=== PATIENT | female | born 1960 | race Caucasian/White ===

== ENCOUNTER 2016-04-18 11:02 | Inpatient (IN) | payer SELFPAY ==
--- NOTE | 2016-04-18 11:33 | ED Physician Chart ---
Chief Complaint/HPI - Patient Information Allergies:: Allergies Allergy/AdvReac Type Severity Reaction Status Date / Time acetaminophen [From Vicodin] Allergy Verified 04/18/16 11:20 hydrocodone [From Vicodin] Allergy Verified 04/18/16 11:20 propoxyphene Allergy Verified 04/18/16 11:20 [From Darvocet-N 100] Vitals:: Vital Signs - 8 hr 04/18/16 04/18/16 16:30 18:25 HR 70 67 RR 18 18 BP 126/60 117/66 O2 Sat % 98 98 <Enmanuel Anguiano - Last Filed: 04/18/16 22:22> - Patient Information Date Seen:: 04/18/16 Time Seen:: 11:33 Chief Complaint:: GENERALIZED WEAKNESS since April 05 History of Present Illness:: The patient awoke April 05 with a sensation of generalized body heaviness and weakness. The week before this she experienced a 3 day headache. In the first week of April she also had a generalized headache. She was seen at [facility] and diagnosed with dehydration and UTI 4 days ago. Since then she has been on cephalexin 4 times a day but has noticed no improvement in her fatigue or weakness. Patient has a strong family history of coronary artery disease with her brother dying at age 22, a mother with 2 myocardial infarctions , and a younger sister who had a mild heart a couple of years ago.. The patient has experienced no chest discomfort or respiratory distress. She has no peripheral edema and no prior history of DVT or pulmonary embolism. Allergies:: Allergies Allergy/AdvReac Type Severity Reaction Status Date / Time acetaminophen [From Vicodin] Allergy Verified 04/18/16 11:20 hydrocodone [From Vicodin] Allergy Verified 04/18/16 11:20 propoxyphene Allergy Verified 04/18/16 11:20 [From Darvocet-N 100] <Chad Patino - Last Filed: 04/19/16 13:28> Review of Systems - Review of Systems General/Constitutional: No fever, No chills, Weakness (And severe fatigue.), No diaphoresis, No edema, No loss of appetite Skin: No skin lesions, No rash, No bruising Head: Headache, Light headed Eyes: No loss of vision, No pain, No diplopia ENT: No earache, No nasal drainage, No sore throat Neck: No neck pain, No stiffness Cardio Vascular: No chest pain, No palpitations, No PND, No edema Pulmonary: No SOB, No cough, No sputum, No wheezing GI: Nausea, No vomiting, No diarrhea, No pain, No hematemesis G/U: No dysuria, No hematuria, Other ( Is on antibiotics for treatment of the UTI four days ago.) Hydrotherapist: No abnormal vaginal bleed Musculoskeletal: No bone or joint pain, No back pain, No muscle pain Endocrine: No polyuria, No polydipsia Psychiatric: No prior psych history, No suicidal ideation Hematopoietic: No bruising, No lymphadenopathy Allergic/Immuno: No urticaria, No angioedema Neurological: No syncope, Weakness ( Generalized weakness and fatigue.), No seizure, No confusion, No vertigo <Chad Patino - Last Filed: 04/19/16 13:28> Past Medical History - Past Medical History Past Medical History: Other (angina) Family History: None Social History: Non Smoker, No Alcohol, No Drug Use Surgical History: None Psychiatricy History: None <Enmanuel Anguiano - Last Filed: 04/18/16 22:22> Family Medical History - Family Member Mother Hx Family Coronary Artery Disease: Yes <Chad Patino - Last Filed: 04/19/16 13:28> Physical Exam - Physical Examination General/Constitutional: Well-developed, well-nourished, Alert, No distress, GCS 15, Non-toxic appearing, Ambulatory Head: Atraumatic Eyes: Lids, conjuctiva normal, PERRL, EOMI Other Eyes comments:: No nystagmus. Skin: Nl inspection, No rash, No skin lesions, No ecchymosis, Well hydrated, No lymphadenopathy Other Skin comments:: The patient has increased pigmentation in her palmar creases. ENMT: External ears, nose nl, Nasal exam nl, Lips, teeth, gums nl, Oropharynx nl , Tonsils nl Neck: Nontender, Full ROM w/o pain, No JVD, No nuchal rigidity, No mass Other Neck comments:: No thyromegaly or thyroid nodules. Respiratory: Nl effort/Exclusion, Clear to Auscultation, No Wheeze/Rhonchi/Rales Cardio Vascular: RRR, No murmur, gallop, rubs, NL S1 S2 GI: No tenderness/rebounding/guarding, No organomegaly, No hernia, Normal BS's, Nondistended, No mass/bruits, No McBurney tenderness : No CVA tenderness Extremities: No tenderness or effusion, Full ROM, normal strength in all extremities, No edema Other Extremities comments:: No calf tenderness and Solorio's sign was negative Neuro/Psych: Alert/oriented, DTR's symmetric, Normal sensory exam, Normal motor strength, Judgement/insight normal, Mood normal, No focal deficits Misc: Normal back, No paraspinal tenderness <Chad Patino - Last Filed: 04/19/16 13:28> Labs/Radiology/EKG Results - Lab Results Results: Laboratory Tests 04/18/16 04/18/16 04/18/16 12:35 12:35 12:35 WBC 4.6 L RBC 5.25 H Hgb 15.6 H Hct 46.7 H MCV 88.9 MCH 29.7 MCHC Differential 33.5 RDW 12.4 Plt Count 286 MPV 7.5 Neutrophils % 68.6 Lymphocytes % 22.0 Monocytes % 8.0 Eosinophils % 0.9 Basophils % 0.5 Sodium 138 Potassium 3.9 Chloride 107 Carbon Dioxide 25.9 Anion Gap 9.0 BUN 9 Creatinine 0.8 Est GFR ( Amer) > 60.0 Est GFR (Non-Af Amer) > 60.0 BUN/Creatinine Ratio 11.3 Glucose 103 Calcium 10.6 H Total Bilirubin 0.5 AST 10 L ALT 24 Alkaline Phosphatase 99 Troponin I < 0.01 L B-Natriuretic Peptide 28.6 Total Protein 8.4 H Albumin 4.6 Globulin 3.8 Albumin/Globulin Ratio 1.2 Urine Source Urine Color Urine Clarity Urine pH Ur Specific [place] Urine Protein Urine Glucose (UA) Urine Ketones Urine Blood Urine Nitrate Urine Bilirubin Urine Urobilinogen Ur Leukocyte Esterase Urine RBC Urine WBC Ur Epithelial Cells Urine Bacteria 04/18/16 12:40 WBC RBC Hgb Hct MCV MCH MCHC Differential RDW Plt Count MPV Neutrophils % Lymphocytes % Monocytes % Eosinophils % Basophils % Sodium Potassium Chloride Carbon Dioxide Anion Gap BUN Creatinine Est GFR ( Amer) Est GFR (Non-Af Amer) BUN/Creatinine Ratio Glucose Calcium Total Bilirubin AST ALT Alkaline Phosphatase Troponin I B-Natriuretic Peptide Total Protein Albumin Globulin Albumin/Globulin Ratio Urine Source RANDOM Urine Color YELLOW Urine Clarity SL. CLOUDY Urine pH 7.5 Ur Specific [place] 1.015 Urine Protein NEGATIVE Urine Glucose (UA) NEGATIVE Urine Ketones 15 H Urine Blood TRACE Urine Nitrate NEGATIVE Urine Bilirubin NEGATIVE Urine Urobilinogen 0.2 Ur Leukocyte Esterase NEGATIVE Urine RBC 0-1 Urine WBC NONE SEEN Ur Epithelial Cells RARE Urine Bacteria NONE SEEN - Radiology Results Results: Single AP VIEW Portable Chest X-ray was interpreted independently and contemporaneously by Gris Anguiano MD: No cardiomegaly Normal mediastinum No lung infiltrates No pneumothorax No soft tissue or bony abnormalities CT head without contrast per radiology NAD <Enmanuel Anguiano - Last Filed: 04/18/16 22:22> - Lab Results Results: Laboratory Tests 04/18/16 04/18/16 04/18/16 12:35 12:35 12:35 WBC 4.6 L RBC 5.25 H Hgb 15.6 H Hct 46.7 H MCV 88.9 MCH 29.7 MCHC Differential 33.5 RDW 12.4 Plt Count 286 MPV 7.5 Neutrophils % 68.6 Lymphocytes % 22.0 Monocytes % 8.0 Eosinophils % 0.9 Basophils % 0.5 Sodium 138 Potassium 3.9 Chloride 107 Carbon Dioxide 25.9 Anion Gap 9.0 BUN 9 Creatinine 0.8 Est GFR ( Amer) > 60.0 Est GFR (Non-Af Amer) > 60.0 BUN/Creatinine Ratio 11.3 Glucose 103 Calcium 10.6 H Total Bilirubin 0.5 AST 10 L ALT 24 Alkaline Phosphatase 99 Troponin I < 0.01 L B-Natriuretic Peptide 28.6 Total Protein 8.4 H Albumin 4.6 Globulin 3.8 Albumin/Globulin Ratio 1.2 Urine Source Urine Color Urine Clarity Urine pH Ur Specific [place] Urine Protein Urine Glucose (UA) Urine Ketones Urine Blood Urine Nitrate Urine Bilirubin Urine Urobilinogen Ur Leukocyte Esterase Urine RBC Urine WBC Ur Epithelial Cells Urine Bacteria 04/18/16 12:40 WBC RBC Hgb Hct MCV MCH MCHC Differential RDW Plt Count MPV Neutrophils % Lymphocytes % Monocytes % Eosinophils % Basophils % Sodium Potassium Chloride Carbon Dioxide Anion Gap BUN Creatinine Est GFR ( Amer) Est GFR (Non-Af Amer) BUN/Creatinine Ratio Glucose Calcium Total Bilirubin AST ALT Alkaline Phosphatase Troponin I B-Natriuretic Peptide Total Protein Albumin Globulin Albumin/Globulin Ratio Urine Source RANDOM Urine Color YELLOW Urine Clarity SL. CLOUDY Urine pH 7.5 Ur Specific [place] 1.015 Urine Protein NEGATIVE Urine Glucose (UA) NEGATIVE Urine Ketones 15 H Urine Blood TRACE Urine Nitrate NEGATIVE Urine Bilirubin NEGATIVE Urine Urobilinogen 0.2 Ur Leukocyte Esterase NEGATIVE Urine RBC 0-1 Urine WBC NONE SEEN Ur Epithelial Cells RARE Urine Bacteria NONE SEEN Laboratory interpretation: CBC is normal. Basic metabolic panel is unremarkable. The patient has a troponin within the normal range. BNP is within normal range. Single view chest x-ray: No cardiomegaly. No CHF. No aortic calcifications or dilatation. No pneumothorax. No areas of pulmonary consolidation or infiltrate. Impression: No acute cardiopulmonary findings. - EKG Interpretations EKG Time:: 11:22 Rhythm: NORMAL SINUS RHYTHM [place]: NORMAL Rate: 65 <Chad Patino - Last Filed: 04/19/16 13:28> Assessment - Assessment General Assessment: CASE SUMMARY: this 55-year-old female presents with severe generalized weakness and fatigue that has been going on for two weeks. Patient was seen at [facility] for these complaints and diagnosed with UTI and dehydration. She was placed on a course of cephalexin with no improvement. The patient has an incidental family history of severe coronary artery disease. Patients mother's had 2 IA's and her younger sister has had one myocardial infarction. Her brother at age 22 from a presumed heart problem. The patient's EKG, troponin and BMP were all unremarkable. Chest x-ray showed no evidence of cardiomegaly or CHF. Because of the strong family history of coronary artery disease I felt this patient should be admitted for further diagnostic studies and cardiology consultation to rule out ACS as this could represent an anginal equivalent to chest pain. MDM DDX FOR SEVERE GENERALIZED WEAKNESS: NOT Anemia Due to a hemoglobin level of 15.6. NOT Electrolyte imbalance due to normal values in the metabolic panel. NOT Sepsis due to the patient's vital signs and laboratory results. NOT Faulk's disease due to normal electrolyte values. <Chad Patino - Last Filed: 04/19/16 13:28> ED Septic Shock - . Is Septic Shock (SBP<90, OR Lactate>4 mmol\L) present?: No - <6hrs of presentation: Vital Signs: Vital Signs - 8 hr 04/18/16 04/18/16 16:30 18:25 HR 70 67 RR 18 18 BP 126/60 117/66 O2 Sat % 98 98 <Enmanuel Anguiano - Last Filed: 04/18/16 22:22> - . Is Septic Shock (SBP<90, OR Lactate>4 mmol\L) present?: No <Chad Patino - Last Filed: 04/19/16 13:28> Reassessment (Disposition) - Reassessment Reassessment:: Discussed the case with Dr. Allen. Patient will be brought in for observation to rule out ACS. Reassessment Condition:: Unchanged - Diagnosis Diagnosis:: Generalized weakness Rule out ACS Hypertension - Patient Disposition Discharge/Transfer:: Acute Care w/in this hosp Admitting Medical Physician:: Pascual Allen Time:: 22:00 Condition at Disposition:: Stable <Enmanuel Anguiano - Last Filed: 04/18/16 22:22> ED Discharge Plan <Enmanuel Anguiano - Last Filed: 04/18/16 22:22> <Chad Patino - Last Filed: 04/19/16 13:28> - Patient Disposition Admit/Discharge/Transfer: Acute Care w/in this hosp
[2016-04-18] MEDS ORDERED: Sodium Chloride 0.9% 1,000 ML IV ONE ×2 (12:07→12:09)
[2016-04-18 12:46] LABS: % BASOPHILS 0.5 % (0.0-2.0); % EOSINOPHILS 0.9 % (0.0-5.0); % NEUTROPHILS 68.6 % (40.0-80.0); HEMATOCRIT 46.7 % (35.0-45.0); HEMOGLOBIN 15.6 gm/dL (11.7-15.5); MEAN CELL VOLUME 88.9 fl (81-100); MEAN CORPUSCULAR HEMOGLOBIN 29.7 pg (27.0-31.0); MEAN CORPUSCULAR HGB CONC 33.5 pg (28.0-36.0); MEAN PLATELET VOLUME 7.5 fl; NEUTROPHILE ABSOLUTE 3.2 Th/cmm (1.8-8.0); PLATELET COUNT 286 Th/cmm (150-400); RED BLOOD COUNT 5.25 Mil/cmm (3.80-5.10); RED CELL DISTRIBUTION WIDTH 12.4 % (11.5-20.0); WHITE BLOOD COUNT 4.6 Th/cmm (4.8-10.8)
[2016-04-18 12:48] LABS: URINE BILIRUBIN NEGATIVE (NEGATIVE); URINE BLOOD TRACE (NEGATIVE); URINE COLOR YELLOW; URINE GLUCOSE (UA) NEGATIVE (NEGATIVE); URINE KETONE 15 mg/dL (NEGATIVE)
[2016-04-18 12:49] LABS: URINE PH 7.5; URINE PROTEIN NEGATIVE (NEGATIVE); URINE UROBILINOGEN 0.2 E.U./dL (0.2 - 1.0)
[2016-04-18 12:55] LABS: URINE BACTERIA NONE SEEN /hpf (NONE SEEN); URINE EPITHELIAL CELLS RARE /lpf (FEW); URINE RBC 0-1 /hpf (0-5); URINE WBC NONE SEEN /hpf (0-5)
[2016-04-18 13:05] LABS: ALB/GLOB RATIO 1.2 (1.0-1.8); ALKALINE PHOSPHATASE 99 U/L (34-104); BILIRUBIN,TOTAL 0.5 mg/dL (0.3-1.0); BUN - UREA NITROGEN 9 mg/dL (7-25); BUN/CREATININE RATIO 11.3; CALCIUM SERUM 10.6 mg/dL (8.6-10.3); CARBON DIOXIDE 25.9 mEq/L (21.0-31.0); CHLORIDE 107 mEq/L (98-107); CREATININE - SERUM 0.8 mg/dL (0.6-1.2); GLUCOSE 103 mg/dL (70-105); POTASSIUM SERUM 3.9 mEq/L (3.5-5.1); SGOT 10 U/L (13-39); SGPT/ALT 24 U/L (7-52); SODIUM SERUM 138 mEq/L (136-145)
[2016-04-18 13:31] LABS: BNP 28.6 pg/mL (5.0-100.0)
[2016-04-19] MEDS: Sodium Chloride 0.9% 1,000 ML IV SCH ×2 (00:34→13:28)
[2016-04-19 06:43] LABS: % BASOPHILS 0.3 % (0.0-2.0); % EOSINOPHILS 2.1 % (0.0-5.0); % LYMPHOCYTES 23.8 % (20.0-50.0); % MONOCYTES 9.2 % (2.0-10.0); % NEUTROPHILS 64.6 % (40.0-80.0); MEAN CELL VOLUME 87.1 fl (81-100); MEAN CORPUSCULAR HEMOGLOBIN 29.9 pg (27.0-31.0); MEAN CORPUSCULAR HGB CONC 34.4 pg (28.0-36.0); MEAN PLATELET VOLUME 7.9 fl; NEUTROPHILE ABSOLUTE 3.4 Th/cmm (1.8-8.0); RED BLOOD COUNT 4.51 Mil/cmm (3.80-5.10); RED CELL DISTRIBUTION WIDTH 12.3 % (11.5-20.0); WHITE BLOOD COUNT 5.3 Th/cmm (4.8-10.8)
[2016-04-19 06:45] LABS: CHOLESTEROL 130 mg/dL (<200); TRIGLYCERIDES 78 mg/dL (<150)
[2016-04-19 06:47] LABS: ALB/GLOB RATIO 1.3 (1.0-1.8); ALKALINE PHOSPHATASE 78 U/L (34-104); ANION GAP 9.3 (7.0-16.0); BILIRUBIN,TOTAL 0.6 mg/dL (0.3-1.0); BUN - UREA NITROGEN 9 mg/dL (7-25); BUN/CREATININE RATIO 12.9; CALCIUM SERUM 9.7 mg/dL (8.6-10.3); CARBON DIOXIDE 23.6 mEq/L (21.0-31.0); CHLORIDE 108 mEq/L (98-107); CREATININE - SERUM 0.7 mg/dL (0.6-1.2); GLUCOSE 94 mg/dL (70-105); POTASSIUM SERUM 3.9 mEq/L (3.5-5.1); SGOT 16 U/L (13-39); SGPT/ALT 24 U/L (7-52); SODIUM SERUM 137 mEq/L (136-145)
[2016-04-19 08:03] LABS: HEMATOCRIT 39.3 % (35.0-45.0); HEMOGLOBIN 13.5 gm/dL (11.7-15.5)
[2016-04-19 08:04] LABS: PLATELET COUNT 228 Th/cmm (150-400)
[2016-04-19] MEDS: Aspirin 81mg Chewable Tab PO SCH (09:03)
--- NOTE | 2016-04-19 11:20 | Diagnostic Imaging Report ---
Portable chest x-ray HISTORY: Shortness of breath The overall heart size is difficult to assess with portable technique in a poor inspiration. No acute focal pulmonary processes. No hilar or mediastinal abnormalities. IMPRESSION: No acute abnormalities
--- NOTE | 2016-04-19 11:22 | Diagnostic Imaging Report ---
Portable chest x-ray History: Shortness of breath Allowing for portable technique the heart size is normal. No focal pulmonary parenchymal processes. No hilar or mediastinal abnormalities. Impression: No acute abnormalities.
--- NOTE | 2016-04-19 11:24 | Diagnostic Imaging Report ---
CT scan of the brain without intravenous contrast HISTORY: Stroke, CVA Total DLP equals 568 CTDI equals 32.9 Axial sections were obtained from the base of the skull to the vertex. There is a normal ventricular system size. There is prominence of cerebral sulci and subarachnoid cisterns reflecting mild atrophy. No acute parenchymal abnormalities. No intracerebral hemorrhage. No mass effect or shift of midline structures. No extra-axial masses or abnormal fluid collections. IMPRESSION: 1. No acute abnormalities
--- NOTE | 2016-04-19 19:41 | History & Physical ---
CHIEF COMPLAINT: Generalized weakness, chest tightness. HISTORY OF PRESENT ILLNESS: This is a 55-year-old female who has a history of obstructive sleep apnea and who was in her usual state of health until 04/05/2016 when apparently she woke up with generalized feeling of weakness, tiredness with a "heavy body feeling", especially on both of her feet and legs and on and off headaches. She apparently had a 3-day history of headaches which started soon after her weakness. She also reports feeling of chest pressure, although she states that she has had angina and this has been somewhat different in the sense that it does not radiate to any of her upper extremities and is not associated with nausea, vomiting or diaphoresis. She went to [facility] couple of days ago and was apparently diagnosed with UTI and was given Keflex p.o., which has not helped with her symptoms. She denies any UTI symptomatology. She also denies any fever or chills. She does have a strong history of family cardiac history. She had a brother who at age 22 secondary to a sudden MS and her mom was diagnosed with CAD about 2 years ago, she has had stent placement. The patient has been admitted to telemetry for further management and care. PAST MEDICAL HISTORY: She was told she had angina a few years ago, but has had no recurrent symptoms-has never had cardiac w/u. She does have a history of sleep apnea, which diagnosed 4 years ago, but she has not been able to afford a BiPAP or nasal CPAP. PAST SURGICAL HISTORY: Large lipoma resection from her left upper back many years ago. FAMILY HISTORY: As noted in the HPI. There is also history of fibromyalgia in her mom and her sister. SOCIAL HISTORY: No tobacco, no ETOH, no illicit drug usage. She works as an contract post office clerk. ALLERGIES: Vicodin and Percocet-side effects are lethargy and LOC. OUTPATIENT MEDICATIONS: Currently on Keflex and at times very rarely she take baby aspirin. REVIEW OF SYSTEMS: GENERAL: As mentioned in the HPI, generalized lethargy with a feeling of heaviness throughout her body, occasional headaches. Denies any fever or chills. She states that she has gained probably about 10 pounds over the last month or so given the holidays, but denies any other major symptomatology at this time. HEAD AND NECK: No decrease in vision. Headaches which are in both hemispheres. CARDIAC: Chest pressure especially at night when she thinks she is having an apnea episode. CHEST: She denies any pain with deep breathing. PULMONARY: No cough or phlegm production. GASTROINTESTINAL: No bowel habit changes. GENITOURINARY: Denies any dysuria or hematuria. NEUROLOGIC: Denies any changes in vision. The headaches as mentioned above. No syncope. At times when waking up she feels as she might be having vertigo as she feels the room spins at times. PHYSICAL EXAMINATION: VITAL SIGNS: Temperature 97.8, pulse 70-76, respirations 16, BP 137/87, satting 95-98% on room air. GENERAL: She is a well-developed, mildly obese female, awake, alert and oriented x 3, not in acute distress, able to answer questions appropriately. HEENT: Normocephalic, atraumatic. Extraocular movements are intact. Oropharynx moist and clear. CARDIOVASCULAR: Regular rate and rhythm without any murmurs. S1, S2 could be heard. No rubs are noted. RESPIRATORY: Lungs are clear to auscultation bilaterally. ABDOMEN: Soft, supple, nontender, nondistended, normoactive bowel sounds. EXTREMITIES: No edema in lower extremities. NEUROLOGIC: Grossly intact and nonfocal. She is able to move all four extremities with equal force and strength. LABORATORY DATA: White count 5.3, H and H 13/39 and platelet count 228. Chemistries were essentially within normal limits. Troponins have been negative x 3 sets. BNP is 28.6. TSH 4.48. HDL 41, LDL 76. Cholesterol was 130, triglycerides 78. UA positive for ketones, otherwise, within normal limits. DIAGNOSTICS: There was a portable chest x-ray done showing no acute abnormalities. A CT scan of the brain without IV contrast showed no acute abnormalities. EKG, sinus rhythm with a rate of 61, no ST elevations or depressions, no Q-waves or inverted T-waves noted. IMPRESSION AND PLAN: 1. Generalized tiredness and weakness with her history the most likely culprit might be worsening sleep apnea. 2. Chest tightness. Risk factors include age and family history. PLAN: She has been admitted to telemetry for further management and care. She has been ruled out with enzymes and EKGs, will ask for a 2D echo and I will also ask for a carotid ultrasound given her current symptoms. I will also check for lupus potential with BRANDEE and double stranded DNA. We will also get ESR and CRP levels. The patient will also be seen by Cardiology and will be checking for daily labs and a followup EKG. Given her family's strong cardiac, pt may benefit from cardiac cath as outpatient once discharged. JOB# [id number] [place]
[2016-04-20] MEDS: Sodium Chloride 0.9% 1,000 ML IV SCH (03:08)
[2016-04-20] MEDS: Aspirin 81mg Chewable Tab PO SCH (09:07)
--- NOTE | 2016-04-20 19:35 | Cardiology ---
The patient of Dr. Allen. M-MODE ECHOCARDIOGRAM: Mitral valve, anterior leaflet of the mitral valve shows normal excursion, EF velocity. Posterior leaflet of mitral valve shows normal excursion. There is hypertrophy of the left ventricle, ejection fraction 62%, left atrium normal. Aortic root shows normal dimension, normal excursion of aortic leaflets. CONCLUSION: Hypertrophy of the left ventricle, ejection fraction 62%. 2D ECHO: Long-axis view showed normal-sized left ventricle with hypertrophy of the left ventricle. Left atrium normal. Aortic root shows normal dimension, normal excursion of aortic leaflets. Short-axis view of mitral valve normal. Short-axis view of aortic valve normal. Apical four-chamber view showed normal-sized left ventricle with hypertrophy of the left ventricle. Left atrium normal. Right ventricular cavity, right atrium normal. Ejection fraction 62%. CONCLUSION: Hypertrophy of the left ventricle, ejection fraction 62%. Doppler study shows trace mitral regurgitation, mild tricuspid regurgitation, right ventricular systolic pressure 27 mmHg, ejection fraction 62%. [facility]# [id number]
--- NOTE | 2016-04-21 20:48 | Discharge Summary ---
ADMITTING DIAGNOSES: Generalized weakness and chest tightness, rule out acute coronary syndrome. SECONDARY DIAGNOSES: Include history of sleep apnea and history of morbid obesity. DISCHARGE DIAGNOSES: Generalized weakness-improved, ARIEL. CONSULTANTS: Dr. Villegas, Cardiology. MAJOR PROCEDURES: There was a head CT scan done on admission showing no acute abnormalities. There was a 2D echo showing hypertrophy of the left ventricle with an EF of 62%. Doppler study showed trace mitral regurgitation, mild tricuspid regurgitation, and right ventricular systolic pressure of 27. DISCHARGE MEDICATIONS: Aspirin 81 every day and Lipitor 10 daily. BRIEF HOSPITAL COURSE: This is a 55-year-old lady with a history of obstructive sleep apnea and strong family history of CAD who presented with a couple of weeks' history of generalized weakness and heavy feeling more noticeable on her lower extremities. As mentioned above, she does have a history of sleep apnea, was diagnosed about 4 years ago and was prescribed what appears to be nasal CPAP, but was not able to afford it. She had been doing okay overall until the 04/05/2016 when she woke up with the above-mentioned complaints. Pt does report active ARIEL given that her has told her that at times she has lapses of breathing during the night. Given her family history and her initial complaint of chest tightness, she was admitted to telemetry fan where she ruled out with cardiac enzymes and EKGs. She also underwent 2D echo and was seen by Cardiology. Her labs on admission and throughout her hospital stay did remain stable. Her symptoms, namely her weakness and her chest tightness resolved by hospital day #2. CONDITION ON DISCHARGE: Stable. DISCHARGE INSTRUCTIONS: The patient was instructed to follow up with her primary care doctor, which she had not followed up with in years. I also instructed her to get a referral for Cardiology outpatient evaluation for possible stress test given her family's cardiac history. I also explained to her the benefits of weight reduction and being placed on a nasal CPAP in the interim, which she was agreeable to. DISPOSITION: The patient was discharged home with the above-mentioned prescriptions/meds. JOB# [id number] [facility]
== END 2016-04-20 12:30 | disposition home or self-care (01) | DRG 156 ==
LOC: ER 11:02 → MSI 22:30
PROVIDERS: ADMIT Internal Medicine; ATTEND Internal Medicine
DX: G47.30 Sleep apnea, unspecified (principal); R07.9 Chest pain, unspecified
CPT/HCPCS: 36415-UA; 70450-TC; 71010-TC; 80053-TC; 80061-TC; 81001-TC; 83735-TC; 83880-TC; 84443-TC; 84484-TC; 85025-TC; 85652-TC; 86038-90; 86141-TC; 86255-90; 93005; 93307-TC; 94760; J7030; Z7610